=== PATIENT | male | born 1975 | race African-American/Black ===

== ENCOUNTER 2016-08-23 09:50 | Emergency (ER) | payer BC ==
[~2016-08-23] VITALS: Ht 182.9 cm; Wt 79.4 kg
[2016-08-23 10:26] VITALS: BP 112/69
--- NOTE | 2016-08-23 11:22 | NUR ---
PT AMBULATED TO BED 7 AT THIS TIME.
--- NOTE | 2016-08-23 11:30 | NUR ---
PT REFERRED TO ER FROM PCP FOR EVALUATION OF WEAKNESS, FATIGUE AND POSSIBLE SYNCOPAL EPISODES X3 WEEKS. HX SLE, REYNAUD'S. DENIES N/V/D; SKIN IS PINK/WARM/DRY; AAOX4 WITH EVEN AND STEADY GAIT; LUNGS CLEAR BL; HR EVEN AND REGULAR; PT DENIES ANY FEVER, CP, SOB, OR COUGH AT THIS TIME; PATIENT STATES PAIN OF 7/10 AT THIS TIME; VSS; PATIENT POSITIONED FOR COMFORT; HOB ELEVATED; BEDRAILS UP X2; BED DOWN. ER MD MADE AWARE OF PT STATUS.
--- NOTE | 2016-08-23 11:50 | NUR ---
DR MCCLELLAND ASSESSING AAO, COOPERATIVE PT AT BEDSIDE NO DISTRESS NOTED, VSS
[2016-08-23 13:15] VITALS: BP 128/80
--- NOTE | 2016-08-23 13:15 | NUR ---
Patient discharged with v/s stable. Written and verbal after care instructions given and explained. Patient verbalized understanding. Ambulatory with steady gait. All questions addressed prior to discharge. Advised to follow up with PMD.
== END 2016-08-23 13:15 | disposition home or self-care (01) ==
LOC: MED 09:50
DX: R55 Syncope and collapse (principal); M32.9 Systemic lupus erythematosus, unspecified; F17.210 Nicotine dependence, cigarettes, uncomplicated; F12.90 Cannabis use, unspecified, uncomplicated; I25.2 Old myocardial infarction; I10 Essential (primary) hypertension
CPT/HCPCS: 36415; 71010; 80053; 83880; 84484; 85025; 85610; 85730; 93005; 99285; Q0092